=== PATIENT | male | born 1950 | race Caucasian/White ===

== ENCOUNTER 2017-11-12 13:16 | Inpatient (IN) ==
--- NOTE | 2017-11-12 13:44 | Emergency Department Report ---
General Adult HPI - General Chief complaint: Medical Emergency Stated complaint: light headed,unresponsive Time Seen by Provider: 11/12/17 13:44 - Related Data Home Medications Medication Instructions Recorded Confirmed Acetaminophen [Acetaminophen Extra 1,000 mg PO Q6H PRN 09/19/17 09/19/17 Strength] Ascorbate Calcium [Vitamin C] 500 mg PO DAILY 09/19/17 09/19/17 Citalopram [Celexa] 40 mg PO DAILY 09/19/17 09/19/17 Cyclobenzaprine [Flexeril] 10 mg PO TID PRN 09/19/17 09/19/17 Glucosa Bbo 2Kcl/Chondroitin Bob 1 tab PO DAILY 09/19/17 09/19/17 [Glucosamine Chondroitin Caplet] Lisinopril [Prinivil] 10 mg PO DAILY 09/19/17 09/19/17 Previous Rx's Medication Instructions Recorded Hydrocodone/APAP 5/325 [[place] 2 tab PO QID PRN #30 tab 09/19/17 5/325] Allergies Allergy/AdvReac Type Severity Reaction Status Date / Time aspirin AdvReac Severe "SEVERE" Verified 09/19/17 19:41 BLEEDING ULCERS NSAIDS (Non-Steroidal AdvReac Severe "SEVERE" Verified 09/19/17 19:41 Anti-Inflamma BLEEDING ULCERS [facility] Patient Stated Medical History Hypertension Yes Osteoarthritis Yes: mid to lower back pain Other Musculoskeletal Yes: scoliosis Surgical History: appendix. hand - Social History Smoking status: Former smoker Substance use type: does not use Alcohol intake frequency: former alcohol drinker Disposition Prescriptions: No Action Ascorbate Calcium [Vitamin C] 500 mg PO DAILY Cyclobenzaprine [Flexeril] 10 mg PO TID PRN PRN Reason: Prn Orders Acetaminophen [Acetaminophen Extra Strength] 1,000 mg PO Q6H PRN PRN Reason: Pain Lisinopril [Prinivil] 10 mg PO DAILY Citalopram [Celexa] 40 mg PO DAILY Glucosa Bob 2Kcl/Chondroitin Bob [Glucosamine Chondroitin Caplet] 1 tab PO DAILY Hydrocodone/APAP 5/325 [[place] 5/325] 2 tab PO QID PRN #30 tab PRN Reason: Pain Referrals: Jay Goodman [Family Provider] -
--- NOTE | 2017-11-12 14:31 | CT Scan Report ---
Indication: difficulty finding words rule out stroke PROCEDURE: CT head/brain wo con: Encounter: Initial Comparison: 08/20/2016 Findings: There is mild prominence of the ventricles and sulci compatible with cortical atrophy. There is no mass, mass effect, or midline shift. No evidence for intracranial hemorrhage. No intra or extra-axial fluid collections. No evidence for depressed skull fracture. The included portions of the sinuses are clear. IMPRESSION: Mild cortical atrophy. No evidence for acute cortical infarct, intracranial hemorrhage, or mass. .
--- NOTE | 2017-11-12 14:39 | XRay Report ---
Indication: difficulty breathing PROCEDURE: XR chest 2V: Encounter: Initial Comparison: None. Findings: There is a questionable nodular opacity in the right mid to upper lung field that measures about 1.5 to 2 cm. The lungs are otherwise relatively clear without lobar consolidation or pleural effusion. Heart size is normal. No significant tortuosity of the descending thoracic aorta. Trachea is midline. Impression: Possible poorly defined nodular opacity in the right midlung. Consider chest CT with IV contrast or short-term follow-up exam for further evaluation. .
[2017-11-12] MEDS ORDERED: MORPHINE SULFATE 4mg INJECTION IVP ONE ×2 (15:15→16:26)
[2017-11-12] MEDS: SALINE FLUSH 10ml SYRINGE IVF PRN ×2 (15:24→17:43)
[2017-11-12] MEDS ORDERED: IOHEXOL 350mg/ml 50ml INJECTION ONE (15:44)
[2017-11-12] MEDS ORDERED: IOHEXOL 350mg/ml 75ml INJECTION ONE (15:44)
[2017-11-12] MEDS ORDERED: SALINE FLUSH 10ml SYRINGE ONE (15:45)
--- NOTE | 2017-11-12 16:30 | CT Scan Report ---
Indication: low hemoglobin back pain, abdominal distention PROCEDURE: CT angio aorta: Encounter: Initial Technique: Helical imaging was performed of the chest abdomen and pelvis after the uneventful IV administration of iodinated contrast. 3-dimensional volume rendered reconstructions were performed on the helically acquired data including rotational surface rendered images. Comparison: None. Findings: CTA chest: The great vessels arise from the aorta and a normal variant manner with the left vertebral artery arising directly from the aortic arch. There is no evidence for aortic aneurysm. There is scattered calcific atherosclerotic disease. The descending aorta is normal in caliber. No evidence for aortic dissection. The lungs are relatively clear. There are some linear atelectasis and/or scarring in the posterior right lung. There is no mediastinal or hilar adenopathy. Heart size is normal. No pericardial effusion. No pleural effusion. CTA abdomen: The abdominal aorta is nonaneurysmal. The great vessels are widely patent without flow-limiting stenosis. There are single bilateral renal arteries. The TIM is patent. There is no ulcerative plaque. There are a few scattered calcific atherosclerotic plaques. The liver has a slightly nodular contour suggesting cirrhosis. The spleen is not definitely enlarged. Adrenal glands are normal. Kidneys enhance symmetrically without focal abnormality. No hydronephrosis, mass, or stone. The gallbladder is thin-walled and nondistended without definite stones. The pancreas is homogeneous in density and uniform in contour. There is no definite bowel distention or bowel wall thickening. No retroperitoneal or mesenteric adenopathy. CTA pelvis: The aortic bifurcation is unremarkable. There is no definite ectasia or aneurysmal dilation of the iliac vessels which are widely patent through the common femoral arteries. The urinary bladder is mildly distended. There is no free fluid. A normal appendix is identified. There is moderate scoliosis of the thoracolumbar spine that is levoconvex in the lumbar spine. Impression: No evidence for aortic aneurysm or aortic dissection. No flow-limiting stenosis of the great vessels. Evidence for cirrhosis of the liver. Mild distention of the urinary bladder. .
[2017-11-12] MEDS ORDERED: ACETAMINOPHEN 325 MG TABLET PO PRN (17:16)
[2017-11-12] MEDS ORDERED: ONDANSETRON 4 MG/2 ML INJECTION IVP PRN (17:16)
[2017-11-12] MEDS ORDERED: NS FLUSH BAG 500ml IV PRN (17:16)
[2017-11-12] MEDS ORDERED: ACETAMINOPHEN 650 MG SUPPOSITORY PR PRN (17:16)
--- NOTE | 2017-11-12 17:33 | History & Physical Report ---
History of Present Illness Date: 11/12/17 Chief complaint: lightheaded and dizzy HPI: Adam Bejarano is a 67 y/o male who has felt lightheaded for about a week. Also during this time he's had some increasing allergy symptoms and has been taking Sudafed. However, he developed loose stools a couple of days ago. He states they were brown and did not appear black or red. He denied feeling SOA, but would become winded after walking about 20 feet. He became very dizzy on and passed out. His only symptom prior to that was dizziness - he denied any chest pain, headache, visual changes, or abdominal pain. He has chronic back pain which is not well controlled today (he only has been on Tylenol for the last 6 months - used to take narcotics). He presented to [facility] ED for evaluation. He was hemodynamically stable on arrival. Head CT was negative for acute findings. CT angio of his aorta was negative for dissection or aneurysm. Labs showed hgb of 5.9 and Na of 125 (pt reports a hx of low sodium). UA was negative for UTI. Hemoccult was positive. He received Morphine for his back pain which was ineffective. Dr. Munoz was notified and admitted MR. Bejarano to the CCU as an inpatient for further eval treatment of syncope, acute severe anemia, and hyponatremia. LOS is expected to exceed 2 overnights. Review of Systems All systems PM: 10-point ROS was reviewed, no additional remarkable complaints except - Constitutional Constitutional: Absent: chills, fever(s), increased appetite, weight gain, weight loss - EENCT Eyes: Absent: blurry vision, change in vision Nose: Present: allergies Mouth/Throat: Present: scratchy throat (thirsty). Absent: sore throat, changes in swallowing, painful swallowing - Cardiovascular Cardiovascular: Present: syncope. Absent: chest pain, palpitations Vascular: Absent: pedal edema - Respiratory Respiratory: Present: dyspnea on exertion - Gastrointestinal Gastrointestinal: Present: diarrhea. Absent: abdominal pain, change in bowel habits, constipation, hematemesis, hematochezia, melena, nausea, odynophagia - Genitourinary Genitourinary: Present: urinary frequency (chronic). Absent: dysuria - Musculoskeletal Musculoskeletal: Present: back pain (chronic) - Integumentary/Breasts Integumentary: Present: wounds (forehead abrasion from fall) - Neurological Neurological: Present: dizziness. Absent: confusion, frequent falls, memory loss, numbness, paresthesias - Psychiatric Psychiatric: Absent: anxiety, behavioral changes - Endocrine Endocrine: Absent: palpitations - Hematologic/Lymphatic Hematologic/Lymphatic: Absent: lymphadenopathy - Allergic/Immunologic Allergic/Immunologic: Present: seasonal rhinorrhea Past Medical History Medical History Updates: Type 2 diabetes. History of peptic ulcer disease with bleeding ulcers. Chronic hepatitis C. Hypertension. Chronic low back pain. Obesity. Surgical History: EGD with biopsy of duodenal ulcer, [address] Allred, revealing large nonbleeding duodenal ulcer and moderate to severe duodenitis with evidence of recent hemorrhage and mild gastritis. Pathology revealed acute necrotizing inflammation of the duodenum. No malignancy. ORIF right ankle fracture, 2013. Colonoscopy, [address] Keene, showing internal hemorrhoids and hyperplastic polyp. Appendectomy, 1999. T and A, 195 Family History Updates: Patient reports that his father at age 93 of old age. Prior records indicate that he had an esophageal ulceration. His mother of colon cancer at the age of 87. He has 2 brothers who are relatively healthy. 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 Medications Home Medications Medication Instructions Recorded Confirmed Type Acetaminophen [Acetaminophen Extra 1,000 mg PO Q6H PRN 09/19/17 11/12/17 History Strength] Cyclobenzaprine [Flexeril] 10 mg PO TID PRN 09/19/17 11/12/17 History Glucosa Bob 2Kcl/Chondroitin Bob 1 tab PO DAILY 09/19/17 11/12/17 History [Glucosamine Chondroitin Caplet] Lisinopril [Prinivil] 10 mg PO DAILY 09/19/17 11/12/17 History Citalopram [Celexa] 40 mg PO DAILY 11/12/17 11/12/17 History Ferrous Sulfate [Iron] 325 mg PO DAILY 11/12/17 11/12/17 History Tamsulosin [Flomax] 0.4 mg PO HS 11/12/17 11/12/17 History Allergies Allergy/AdvReac Type Severity Reaction Status Date / Time aspirin AdvReac Severe "SEVERE" Verified 11/12/17 13:56 BLEEDING ULCERS NSAIDS (Non-Steroidal AdvReac Severe "SEVERE" Verified 11/12/17 13:56 Anti-Inflamma BLEEDING ULCERS Exam Vital Signs: Pulse Rate 100 11/12/17 16:45 Respiratory Rate 15 11/12/17 16:45 Blood Pressure 118/68 11/12/17 16:12 Pulse Oximetry 100 11/12/17 16:45 - Constitutional Present: no acute distress, well nourished, well developed - Routine HEENT Exam Head: Absent: atraumatic (superficial abrasion to forehead) Eye: Present: PERRL. Absent: conjunctival icterus, scleral injection, conjunctivae pink (pale) ENT: Present: mucous membranes moist, oropharynx clear - Routine Neck Exam Present: supple. Absent: lymphadenopathy - Routine Respiratory Exam Present: CTA bilaterally - Routine Cardiovascular Exam Present: RRR, S1, S2, tachycardia (slightly tachycardic) - Routine Abdominal Exam Present: soft, non distended, non tender. Absent: normoactive bowel sounds ( hypoactive bowel sounds) - Routine Extremities Exam Present: no edema, pulses intact - Routine Back/Spine/Pelvis Exam Back/Spine: Absent: full ROM (pain with movement) - Routine Skin Exam Present: intact, dry, pallor, warm, wounds (noted above) - Routine Neurological Exam Present: alert, oriented X3, CN II-XII intact, moving all extremities, vision grossly intact, hearing grossly intact, tremors, asterixis - Routine Psychiatric Exam Present: normal affect, normal thought process, cooperative Results - Labs CBC & Chem 7: 11/12/17 14:56 11/12/17 14:56 - ECG Data Tracing #1 I reviewed this ECG and interpreted as documented below: NSR, no ST segment elevation/depression - Imaging and Cardiology CTA aorta Status: image reviewed by me Additional comments: Date of Exam: 11/12/17 PROCEDURE: CT angio aorta: Findings: CTA chest: The great vessels arise from the aorta and a normal variant manner with the left vertebral artery arising directly from the aortic arch. There is no evidence for aortic aneurysm. There is scattered calcific atherosclerotic disease. The descending aorta is normal in caliber. No evidence for aortic dissection. The lungs are relatively clear. There are some linear atelectasis and/or scarring in the posterior right lung. There is no mediastinal or hilar adenopathy. Heart size is normal. No pericardial effusion. No pleural effusion. CTA abdomen: The abdominal aorta is nonaneurysmal. The great vessels are widely patent without flow-limiting stenosis. There are single bilateral renal arteries. The TIM is patent. There is no ulcerative plaque. There are a few scattered calcific atherosclerotic plaques. The liver has a slightly nodular contour suggesting cirrhosis. The spleen is not definitely enlarged. Adrenal glands are normal. Kidneys enhance symmetrically without focal abnormality. No hydronephrosis, mass, or stone. The gallbladder is thin-walled and nondistended without definite stones. The pancreas is homogeneous in density and uniform in contour. There is no definite bowel distention or bowel wall thickening. No retroperitoneal or mesenteric adenopathy. CTA pelvis: The aortic bifurcation is unremarkable. There is no definite ectasia or aneurysmal dilation of the iliac vessels which are widely patent through the common femoral arteries. The urinary bladder is mildly distended. There is no free fluid. A normal appendix is identified. There is moderate scoliosis of the thoracolumbar spine that is levoconvex in the lumbar spine. Impression: No evidence for aortic aneurysm or aortic dissection. No flow- limiting stenosis of the great vessels. Evidence for cirrhosis of the liver. Mild distention of the urinary bladder. Chest x-ray Status: image reviewed by me Additional comments: Date of Exam: 11/12/17 PROCEDURE: XR chest 2V: Findings: There is a questionable nodular opacity in the right mid to upper lung field that measures about 1.5 to 2 cm. The lungs are otherwise relatively clear without lobar consolidation or pleural effusion. Heart size is normal. No significant tortuosity of the descending thoracic aorta. Trachea is midline. Impression: Possible poorly defined nodular opacity in the right midlung. Consider chest CT with IV contrast or short-term follow-up exam for further evaluation. Assessment and Plan (1) Anemia Current visit: Yes Status: Acute (2) Acute GI bleeding Current visit: Yes Status: Acute Assessment and Plan: Assessment Anemia, suspect GI blood loss. (History of peptic ulcer disease with bleeding ulcers) Syncope, with resulting forehead abrasion Hyponatremia (POA) Type 2 diabetes, diet controlled Chronic hepatitis C Hypertension Chronic low back pain BPH Obesity with BMI 31.1 Plan Admit, inpatient status in CCU, under the hospitalist service. Primary care physician: Dr. Jay Goodman Anemia, suspect GI blood loss. Type and cross for blood transfusion. Consult Dr. Allred. Iron studies ordered prior to transfusion. Will also check INR. Diet: Clear liquids. Protonix IV BID. Resume iron. Syncope Telemetry. Trend troponins. Hyponatremia. Normal saline @ 75 mL/hr. Trend sodium levels. Type 2 diabetes. Diet controlled. Accu-Checks. Hypertension. Hold lisinopril and monitor blood pressure. In addition, with contrast load, will hold lisinopril to help protect kidney function. CODE STATUS: DO NOT RESUSCITATE. VTE Prophylaxis: SCDs. DVT Prophylaxis: SCD's GI Prophylaxis: Protonix Resuscitation Status: Do Not Resuscitate - Physician Narrative Physician: Meet Munoz MD Narrative: Date: 11/12/17 Time: 8 Have independently interviewed and examined pt. Chart reviewed. Case discussed with ED physician and my DRIFTMAN. Care plan developed with my supervision; agree with above. Presents to ER via EMS secondary to weakness/lightheadedness and syncope. BP 80/ 60 on scene with O2 saturations decreased at 70% on RA. He did have fall at home with trauma to forehead-result of syncope. Reports has been feeling more weak and lightheaded for the past week. Becomes winded with activities; needs to stop to rest and catch breath after walking 20 feet. Not having cough/ congestion. Does note rhinitis. No palpitations, but will feel pulse pounding in head. Stools more loose over the last weak. Not having nausea or dyspepsia. Evaluated in ED. Sodium decreased to 125 and hemoglobin decreased to 5.9. Admitted to inpatient at [facility] for further evaluation and treatment. Anticipated length of stay is thought to be greater than 2 midnight. Lungs: decreased, no distress CV: tachy, regular AB: soft nt EXT: trace edema. MSE: awake alert Plan: Inpatient admission to [facility] CCU for treatment of significant anemia thought to be of GI blood loss origon. Will transfuse 2 units of pRBC. IV Protonix for GI protection. Check Ferritin, iron, B12 and folate due to anemia. Case discussed with Dr Allred - anticipate scopes in near future to determine etiology for blood loss. MS for pain. SCD for DVT prevention. Monitor lab. DNR as per his request. Care to return to Dr Goodman at time of discharge from [facility]. Hospital Course Summary Disclaimer: The visit summary below is not to be considered part of the above Progress Note. Hospital Course: 11/12/17 Admit, inpatient status in CCU, under the hospitalist service. Primary care physician: Dr. Jay Goodman Anemia, suspect GI blood loss. Type and cross for blood transfusion. Consult Dr. Allred. Iron studies ordered prior to transfusion. Will also check INR. Diet: Clear liquids. Protonix IV BID. Resume iron. Syncope Telemetry. Trend troponins. Hyponatremia. Normal saline @ 75 mL/hr. Trend sodium levels. Type 2 diabetes. Diet controlled. Accu-Checks. Hypertension. Hold lisinopril and monitor blood pressure. In addition, with contrast load, will hold lisinopril to help protect kidney function. CODE STATUS: DO NOT RESUSCITATE. VTE Prophylaxis: SCDs.
[2017-11-12] MEDS: PANTOPRAZOLE 40 MG INJECTION IVP SCH ×2 (17:42→20:30)
[2017-11-12] MEDS: NS 1,000 ML IV SCH (17:42)
[2017-11-12] MEDS ORDERED: CYCLOBENZAPRINE 10 MG TABLET PO PRN (17:47)
[2017-11-12] MEDS: MORPHINE SULFATE 4mg INJECTION IVP PRN ×3 (17:51→22:39)
[2017-11-12 17:53] VITALS: BMI 31.1
[2017-11-12] MEDS: TAMSULOSIN 0.4 MG CAPSULE PO SCH (20:30)
[2017-11-13] MEDS: MORPHINE SULFATE 4mg INJECTION IVP PRN ×8 (00:31→22:03)
[2017-11-13] MEDS ORDERED: FERROUS SULFATE 324 MG TABLET PO SCH (08:00)
[2017-11-13] MEDS: FERROUS SULFATE 324 MG TABLET PO SCH (08:48)
[2017-11-13] MEDS: PANTOPRAZOLE 40 MG INJECTION IVP SCH ×2 (08:49→21:11)
[2017-11-13] MEDS: CITALOPRAM 40 MG TABLET PO SCH (08:52)
[2017-11-13] MEDS ORDERED: IRON - PHARMACY CONSULT MC ONE (09:31)
[2017-11-13] MEDS: NS 1,000 ML IV SCH ×2 (10:18→21:13)
[2017-11-13] MEDS ORDERED: INFED 100mg/2ml INJ TEST DOSE IVP ONE (10:45)
[2017-11-13] MEDS ORDERED: SOLU-MEDROL 125mg/2ml INJ (HIVES-ANAPHYLAXIS) IVP PRN (10:45)
[2017-11-13] MEDS ORDERED: BENADRYL 50 MG/ML INJ (HIVES-ANAPHYLAXIS) IVP PRN (10:45)
[2017-11-13] MEDS ORDERED: EPINEPHRINE 1mg/ml INJ (ANAPHYAXIS ONLY) IM PRN (10:45)
--- NOTE | 2017-11-13 11:06 | Progress Note ---
- Date 11/13/17 Subjective: F/U: Anemia, GI blood loss, hyponatremia Doing about the same this morning. Did tolerate transfusion well. No nausea or ab pain-feels hungry (would like broth to eat). Back pain still problematic-MS helps slightly. Breathing stable-not feeling increased SOA or congestion. No pain with breathing. Denies palpitations. Urinary status stable. Tired/weak in general. Objective Vital signs: Temperature 97.9 F 11/13/17 08:00 Pulse Rate 101 H 11/13/17 09:00 Respiratory Rate 21 11/13/17 09:00 Blood Pressure 128/81 11/13/17 09:00 Pulse Oximetry 100 11/13/17 09:00 Height/Weight/BMI: Height 1.68 m Weight 87.4 kg Body Mass Index 31.1 - Constitutional Present: well nourished, well developed, average body habitus, obese, cooperative - Routine HEENT Exam Head: Present: normocephalic, atraumatic Eye: Present: EOMI, PERRL ENT: Present: mucous membranes moist - Routine Respiratory Exam Present: decreased breath sounds. Absent: rales, respiratory distress, rhonchi , stridor, wheezes, crackles - Routine Cardiovascular Exam Present: no murmur, tachycardia (Regular) - Routine Abdominal Exam Present: soft, normoactive bowel sounds, non distended, non tender. Absent: guarding - Routine Extremities Exam Present: no edema, pulses intact. Absent: cyanosis, clubbing Comments: SCD in place - Routine Musculoskeletal Exam Musculoskeletal: Present: no clubbing or cyanosis - Routine Skin Exam Present: dry, warm - Routine Neurological Exam Present: alert, oriented X3, CN II-XII intact, moving all extremities, vision grossly intact, hearing grossly intact, normal speech. Absent: motor deficit, altered mental status - Routine Psychiatric Exam Present: normal affect, normal thought process, cooperative Results - Labs CBC & Chem 7: 11/13/17 10:10 11/13/17 10:10 Assessment and Plan (1) Anemia Current visit: Yes Status: Acute (2) Acute GI bleeding Current visit: Yes Status: Acute Assessment and Plan: Assessment Anemia Suspect GI blood loss. (History of peptic ulcer disease with bleeding ulcers ) Syncope, with resulting forehead abrasion Hyponatremia (POA) Iron deficiency Low normal B12 level Type 2 diabetes, diet controlled Chronic hepatitis C Hypertension Chronic low back pain BPH Obesity with BMI 31.1 Plan Hemoglobin increased to 7.2 post transfusion of 1 unit pRBC, but decreased to 6.8 on recheck. Will transfuse 1 unit pRBC and monitor. Iron level low - will give IV iron as level low despite oral iron use in the outpatient setting. B12 low normal at 253 - will start IM Vit B12 shots of 1000mcg daily. Dr Allred evaluated patient and anticipated EGD/Colonoscopy tomorrow - will start bowel prep. Serum sodium still low at 125. Continue low flow IVF and monitor. Continue with IV Protonix for GI protection. Case discussed with CCU nursing and Dr Allred. Time spent with patient care 25 minutes. DVT Prophylaxis: SCD's GI Prophylaxis: Protonix Resuscitation Status: Do Not Resuscitate - Time spent with patient Time with patient PN: 25 minutes - Physician Narrative Physician: Meet Munoz MD Narrative: Date: 11/13/17 Time: 1102 Hospital Course Summary Disclaimer: The visit summary below is not to be considered part of the above Progress Note. Hospital Course: 11/12/17 Admit, inpatient status in CCU, under the hospitalist service. Primary care physician: Dr. Jay Goodman Anemia, suspect GI blood loss. Type and cross for blood transfusion. Transfuse 1 unit pRBC as HGB less than 7.0. Consult Dr[address] Allred. Iron studies ordered prior to transfusion. Will also check INR. Diet: Clear liquids. Protonix IV BID. Resume iron. Syncope Telemetry. Trend troponins. Hyponatremia. Normal saline @ 75 mL/hr. Trend sodium levels. Type 2 diabetes. Diet controlled. Accu-Checks. Hypertension. Hold lisinopril and monitor blood pressure. In addition, with contrast load, will hold lisinopril to help protect kidney function. CODE STATUS: DO NOT RESUSCITATE. VTE Prophylaxis: SCDs. 11/13/17 Hemoglobin increased to 7.2 post transfusion of 1 unit pRBC, but decreased to 6.8 on recheck. Will transfuse 1 unit pRBC and monitor. Iron level low - will give IV iron as level low despite oral iron use in the outpatient setting. B12 low normal at 253 - will start IM Vit B12 shots of 1000mcg daily. Dr Allred evaluated patient and anticipated EGD/Colonoscopy tomorrow - will start bowel prep. Serum sodium still low at 125. Continue low flow IVF and monitor. Continue with IV Protonix for GI protection.
[2017-11-13] MEDS ORDERED: IRON DEXTRAN IV SCH (11:45)
[2017-11-13] MEDS ORDERED: NS IV SCH (11:45)
[2017-11-13] MEDS ORDERED: Bisacodyl EC TAB 5 MG TABLET PO ONE (13:30)
[2017-11-13] MEDS: SALINE FLUSH 10ml SYRINGE IVF PRN ×4 (13:39→22:03)
[2017-11-13] MEDS: CYANOCOBALAMIN (B-12) 1,000mcg/ml INJECTION IM SCH (14:02)
--- NOTE | 2017-11-13 14:37 | General Surgery Consult Note ---
Consult date: 11/13/17 Attending Physician: Meet Munoz MD Reason for consult: other (Anemia-scopes) [facility] Medical History Updates: Type 2 diabetes. History of peptic ulcer disease with bleeding duodenal ulcers - 2013. Chronic hepatitis C. Hypertension. Chronic low back pain. Obesity. GERD. Surgical History: * ORIF of right bimaleolar ankle fracture and fixation of syndesmosis - 06/08/[address] Mckenna. * EGD - 05/17/[address] Allred. Endoscopy showed duodenitis and 2 large duodenal ulcers with no evidence of active hemorrhage. * EGD with biopsies - 01/14/[address] Allred. Endoscopy revealed a very large nonbleeding duodenal ulcer other smaller duodenal ulcers and moderate to severe duodenitis with evidence of recent hemorrhage and mild gastritis. Pathology revealed acute necrotizing inflammation of the duodenum. No malignancy. * Colonoscopy with polypectomy - 01/05/[address] Keene, showing internal hemorrhoids and hyperplastic polyp. * Appendectomy - [address] Delatorre. * T and A - 1958. Family History Updates: Patient reports that his father at age 93 of old age. Prior records indicate that he had an esophageal ulceration. His mother of colon cancer at the age of 87. He has 2 brothers who are relatively healthy. - Social History Smoking status: Former smoker (quit smoking in 1987) Substance use type: does not use Alcohol intake frequency: 0-2 drinks per day (glass of wine daily) Housing: house Household members: spouse Current occupational status: employed Current occupation: truck sales manager Medications Home Medications Medication Instructions Recorded Confirmed Type Acetaminophen [Acetaminophen Extra 1,000 mg PO Q6H PRN 09/19/17 11/12/17 History Strength] Cyclobenzaprine [Flexeril] 10 mg PO TID PRN 09/19/17 11/12/17 History Glucosa Bob 2Kcl/Chondroitin Bob 1 tab PO DAILY 09/19/17 11/12/17 History [Glucosamine Chondroitin Caplet] Lisinopril [Prinivil] 10 mg PO DAILY 09/19/17 11/12/17 History Citalopram [Celexa] 40 mg PO DAILY 11/12/17 11/12/17 History Ferrous Sulfate [Iron] 325 mg PO DAILY 04/12/18 04/12/18 History Tamsulosin [Flomax] 0.4 mg PO HS 11/12/17 11/12/17 History Allergies Allergy/AdvReac Type Severity Reaction Status Date / Time aspirin AdvReac Severe "SEVERE" Verified 11/12/17 13:56 BLEEDING ULCERS NSAIDS (Non-Steroidal AdvReac Severe "SEVERE" Verified 11/12/17 13:56 Anti-Inflamma BLEEDING ULCERS Review of Systems 10-point ROS: negative except for HPI and the following: - Eyes/Ears/Nose/Throat Ear Nose Throat: Present: nosebleeds - Musculoskeletal Musculoskeletal: Present: back pain (chronic) - Vital Signs Last Vital Signs Temp 97.9 F 11/13/17 08:00 Pulse 101 H 11/13/17 09:00 Resp 21 11/13/17 09:00 BP 128/81 11/13/17 09:00 Pulse Ox 100 11/13/17 09:00 - Laboratory Result Diagrams: 11/13/17 10:10 11/13/17 10:10 General Surgery Results - Results Labs: 11/13/17 10:10 11/13/17 10:10
[2017-11-13] MEDS: HYDROCODONE/APAP 10 MG/325 MG TABLET PO PRN ×2 (15:20→19:46)
[2017-11-13] MEDS ORDERED: POLYETHYL. GLYCOL 3350 BOTTLE 238 GM PO ONE (15:30)
--- NOTE | 2017-11-13 16:41 | Advanced Care Planning ---
History of Present Illness Date: 11/13/17 Current Medical Condition: Previous Diagnosis: Treatment: Response to Treatment: Diagnosis: Prognosis: Past Medical History Patient Stated Medical History Hearing Loss Yes Hypertension Yes Anemia Yes Osteoarthritis Yes: mid to lower back pain Other Musculoskeletal Yes: scoliosis Other Infectious Yes: Hx Hep C Blood Transfusions Yes Medical History Updates: Type 2 diabetes. History of peptic ulcer disease with bleeding duodenal ulcers - 2013. Chronic hepatitis C. Hypertension. Chronic low back pain. Obesity. GERD. Surgical History: * ORIF of right bimaleolar ankle fracture and fixation of syndesmosis - 06/08/[address] Mckenna. * EGD - 05/17/[address] Allred. Endoscopy showed duodenitis and 2 large duodenal ulcers with no evidence of active hemorrhage. * EGD with biopsies - 01/14/[address] Allred. Endoscopy revealed a very large nonbleeding duodenal ulcer other smaller duodenal ulcers and moderate to severe duodenitis with evidence of recent hemorrhage and mild gastritis. Pathology revealed acute necrotizing inflammation of the duodenum. No malignancy. * Colonoscopy with polypectomy - 01/05/[address] Keene, showing internal hemorrhoids and hyperplastic polyp. * Appendectomy - [address] Delatorre. * T and A - 1958. - Social History Smoking status: Former smoker (quit smoking in 1987) - Cultural and Spiritual Medications Home Medications Medication Instructions Recorded Confirmed Type Acetaminophen [Acetaminophen Extra 1,000 mg PO Q6H PRN 09/19/17 11/12/17 History Strength] Cyclobenzaprine [Flexeril] 10 mg PO TID PRN 09/19/17 11/12/17 History Glucosa Bob 2Kcl/Chondroitin Bob 1 tab PO DAILY 09/19/17 11/12/17 History [Glucosamine Chondroitin Caplet] Lisinopril [Prinivil] 10 mg PO DAILY 09/19/17 11/12/17 History Citalopram [Celexa] 40 mg PO DAILY 11/12/17 11/12/17 History Ferrous Sulfate [Iron] 325 mg PO DAILY 11/12/17 11/12/17 History Tamsulosin [Flomax] 0.4 mg PO HS 11/12/17 11/12/17 History Allergies Allergy/AdvReac Type Severity Reaction Status Date / Time aspirin AdvReac Severe "SEVERE" Verified 11/12/17 13:56 BLEEDING ULCERS NSAIDS (Non-Steroidal AdvReac Severe "SEVERE" Verified 11/12/17 13:56 Anti-Inflamma BLEEDING ULCERS Exam Vital Signs: Temperature 98.1 F 11/13/17 16:00 Pulse Rate 107 H 11/13/17 16:15 Respiratory Rate 17 11/13/17 16:15 Blood Pressure 144/73 H 11/13/17 16:15 Pulse Oximetry 100 11/13/17 16:15 Height/Weight/BMI: Height 1.68 m Weight 87.4 kg Body Mass Index 31.1 - Laboratory CBC & Chem 7: 11/13/17 15:42 11/13/17 10:10
--- NOTE | 2017-11-13 17:43 | Consultation ---
DATE OF CONSULTATION 11/13/2017 CONSULTING PHYSICIAN Jules Allred MD REQUESTING PHYSICIAN Meet Munoz MD REASON FOR CONSULTATION Anemia - scopes. IMPRESSION 1. Anemia of uncertain etiology - hemoglobin of 5.9 requiring transfusion. 2. Family history of colon cancer - due for a repeat screening colonoscopy. 3. Personal history of duodenal ulcers in 2013. RECOMMENDATIONS 1. Transfuse as necessary to maintain a hemoglobin greater than 7. 2. Given the history of duodenal ulcers, I do think that an esophagogastroduodenoscopy should be performed to look for a potential source of blood loss. 3. Since the patient has a family history of colon cancer in his mother he is due for repeat screening colonoscopy in January 2018. Since this is so close and he is already going to be under sedation, I do feel that repeat colonoscopy should be performed at once. This will also investigate for other potential etiologies of anemia if his esophagogastroduodenoscopy is normal. HISTORY OF PRESENT ILLNESS Adam was a prior patient of mine when I cared for him with two esophagogastroduodenoscopies in 2013 for duodenal ulcers. He was hospitalized yesterday when he was discovered to have a hemoglobin of 5.9 on evaluation in the emergency department. The patient says that he had a significant nosebleed in October. He had to have nasal cauterization at [facility] in [place] and followup cauterization in the clinic the following day. He said that he was having significant bleeding where he was soaking a washcloth in about a minute. He also reports that he has had fatigue for the last few weeks. He has felt winded after walking about 20 feet. Yesterday he felt dizzy and then passed out. This is what prompted his emergency department evaluation. He denies any abdominal pain. His stools have been normal and he does check for any blood in his stools. He has seen no melanotic stools. He does have a history of duodenal ulcers in 2013. He has a family history of colon cancer in his mother. His last colonoscopy was on 01/05/2013. PAST MEDICAL HISTORY, PAST SURGICAL HISTORY, ALLERGIES, MEDICATIONS, REVIEW OF SYSTEMS, SOCIAL HISTORY, FAMILY HISTORY, VITAL SIGNS, LABORATORY DATA See electronic consultation note. PHYSICAL EXAMINATION GENERAL: The patient is awake and alert, in no acute distress. HEENT: Sclerae clear. Extraocular muscles intact. NECK: Supple with a midline trachea. No lymphadenopathy or thyromegaly are noted. HEART: Regular rate and rhythm. LUNGS: Clear to auscultation bilaterally. ABDOMEN: Soft, obese, nontender, nondistended. There are no masses, fluid, organomegaly, guarding or rebound noted. EXTREMITIES: No clubbing, cyanosis or edema. NEUROLOGIC: Cranial nerves II-XII are grossly intact. PSYCHIATRIC: Normal mood and affect. PATIENT EDUCATION The details, risks and benefits of esophagogastroduodenoscopy and colonoscopy were discussed with the patient. The discussion included but was not limited to bleeding, perforation requiring repair, aspiration, missed lesions, and complications of anesthesia. He did wish to proceed with endoscopies. FLORECITA
[2017-11-13] MEDS: TAMSULOSIN 0.4 MG CAPSULE PO SCH (21:11)
[2017-11-14] MEDS: SALINE FLUSH 10ml SYRINGE IVF PRN ×2 (00:09→04:58)
[2017-11-14] MEDS: MORPHINE SULFATE 4mg INJECTION IVP PRN ×10 (00:09→21:20)
[2017-11-14] MEDS: HYDROCODONE/APAP 10 MG/325 MG TABLET PO PRN ×4 (00:09→21:21)
[2017-11-14] MEDS: NS 1,000 ML IV SCH ×3 (06:53→16:37)
[2017-11-14] MEDS: PANTOPRAZOLE 40 MG INJECTION IVP SCH (08:58)
[2017-11-14] MEDS: FERROUS SULFATE 324 MG TABLET PO SCH (08:59)
[2017-11-14] MEDS: CYANOCOBALAMIN (B-12) 1,000mcg/ml INJECTION IM SCH (08:59)
[2017-11-14] MEDS: CITALOPRAM 40 MG TABLET PO SCH (08:59)
[2017-11-14] MEDS ORDERED: LIDOCAINE VISCOUS 2% ORAL LIQUID 15ml PO ONE (09:31)
[2017-11-14] MEDS ORDERED: PROPOFOL 500 MG/50 ML VIAL ONE ×2 (09:45→10:35)
--- NOTE | 2017-11-14 09:46 | Anesthesia Preoperative Report ---
Anesthesia Preoperative Record - Date and Time Date: 11/14/17 Preoperative Diagnosis: Anemia, GI bleed, Hyponatremia Proposed Procedure: EGD/Colonoscopy NPO Since Date: 11/14/17 NPO Since Time: 00:00 Allergies/Adverse Reactions: Allergies Allergy/AdvReac Type Severity Reaction Status Date / Time aspirin AdvReac Severe "SEVERE" Verified 11/12/17 13:56 BLEEDING ULCERS NSAIDS (Non-Steroidal AdvReac Severe "SEVERE" Verified 11/12/17 13:56 Anti-Inflamma BLEEDING ULCERS - Vital Signs Vital Signs: Temperature 97.7 F 11/13/17 19:36 Pulse Rate 94 11/14/17 07:00 Respiratory Rate 17 11/14/17 07:00 Blood Pressure 123/87 11/14/17 06:00 Pulse Oximetry 100 11/14/17 03:00 Height and Weight: Height 5 ft 6 in Weight 87.4 kg Body Mass Index 31.1 - Medications Inpatient Medications: Current Medications Acetaminophen (Tylenol) 650 mg PO Q5H PRN PRN Reason: Discomfort Acetaminophen (Tylenol Supp) 650 mg [place] Q5H PRN PRN Reason: Discomfort Hydrocodone Bitart/Acetaminophen ([place] 10/325) 1 tab PO Q4H PRN PRN Reason: Pain Last Admin: 11/14/17 00:09 Dose: 1 tab Citalopram Hydrobromide (Celexa) 40 mg PO DAILY [facility] Last Admin: 11/13/17 08:52 Dose: 40 mg Cyanocobalamin (Vit. B-12) 1,000 mcg IM DAILY [facility] Stop: 11/17/17 09:01 Last Admin: 11/13/17 14:02 Dose: 1,000 mcg Cyclobenzaprine HCl (Flexeril) 10 mg PO TID PRN PRN Reason: PRN orders Diphenhydramine HCl (Benadryl) 50 mg IVP PRN PRN PRN Reason: URTICARIA (HIVES) X 1 DOSE Epinephrine HCl (Adrenalin) 0.3 mg IM PRN PRN PRN Reason: ANAPHYLAXIS ONLY Ferrous Sulfate (Feosol) 324 mg PO WB [facility] Last Admin: 11/13/17 08:48 Dose: 324 mg Sodium Chloride (Normal Saline) 1,000 mls @ 75 mls/hr IV .[id number] [facility] Last Infusion: 11/14/17 07:00 Dose: 75 mls/hr Methylprednisolone Sodium Succinate (Solu-Medrol) 125 mg IVP PRN PRN PRN Reason: URTICARIA (HIVES) X 1 DOSE Morphine Sulfate (Morphine Sulfate Inj) 4 mg IVP Q2H PRN PRN Reason: Pain Last Admin: 11/14/17 06:56 Dose: 4 mg Ondansetron HCl (Zofran) 4 mg IVP Q6H PRN PRN Reason: Nausea Last Admin: 11/13/17 04:36 Dose: 4 mg Pantoprazole Sodium (Protonix Iv) 40 mg IVP BID ALEXA Last Admin: 11/13/17 21:11 Dose: 40 mg Sodium Chloride (Iv Flush) 10 - 80 ml IVF PRN PRN PRN Reason: Flushing Last Admin: 11/14/17 04:58 Dose: 10 ml Sodium Chloride (Normal Saline) 500 ml IV PRN PRN Last Admin: 11/12/17 17:42 Dose: 500 ml Tamsulosin HCl (Flomax) 0.4 mg PO HS [facility] Last Admin: 11/13/17 21:11 Dose: 0.4 mg Home Medications: Home Medications Medication Instructions Recorded Confirmed Type Acetaminophen [Acetaminophen Extra 1,000 mg PO Q6H PRN 09/19/17 11/12/17 History Strength] Cyclobenzaprine [Flexeril] 10 mg PO TID PRN 09/19/17 11/12/17 History Glucosa Bob 2Kcl/Chondroitin Bob 1 tab PO DAILY 09/19/17 11/12/17 History [Glucosamine Chondroitin Caplet] Lisinopril [Prinivil] 10 mg PO DAILY 09/19/17 11/12/17 History Citalopram [Celexa] 40 mg PO DAILY 11/12/17 11/12/17 History Ferrous Sulfate [Iron] 325 mg PO DAILY 11/12/17 11/12/17 History Tamsulosin [Flomax] 0.4 mg PO HS 11/12/17 11/12/17 History Is Patient on Beta Keya?: No - Medical History Respiratory: DENIES: Asthma, Bronchitis, Chronic Obstructive Pulmonary Disease (COPD), Dyspnea, Orthopnea, Pulmonary Embolism, Pneumonia, Upper Respiratory Infection, Pulmonary Edema, Sleep Apnea, Tuberculosis, Other Cardiovascular: Reports: Hypertension Neuro/Musculoskeletal: Reports: [id number].MS.[id number] (mid to lower back pain), Other ( scoliosis) Other History: Reports: Blood Transfusions - Surgical History GI Surgery/Treatments: Reports: Appendectomy, Colonoscopy (Dr. Keene) Musculoskeletal Surgery/Tx: Reports: Other (right leg/ankle) Anesthesia Reactions: None Hx Family Anesthesia Reaction: No History of Motion Sickness: No - Social History Smoking Status: Former smoker (quit smoking in 1987) Substance Use Type: does not use Alcohol Intake Frequency: 0-2 drinks per day (glass of wine daily) - Pertinent Findings Laboratory: CBC and BMP 11/14/17 03:08 11/14/17 03:08 BMP 11/13/17 11/14/17 10:10 03:08 Sodium 125 L 126 L Potassium 4.6 4.5 Chloride 92 L 93 L Carbon Dioxide 24 25 BUN 17.0 11.0 Creatinine 0.9 0.7 L D Glucose 112 H 117 H Calcium 8.7 9.0 EKG: Sinus Tachycardia - Physical Exam Respiratory Exam: Present: lungs clear, bilateral breath sounds equal Cardiovascular Exam: Present: regular rate and rhythm, no murmur - Airway Assessment Mallampati Score: II TMD: 3 Fingerbreadths Neck Extension: fair Overall Assessment: may be difficult intubation - ASA ASA Score: 3 - Plan Anesthesia: General TIVA - Discussion Discussion: Discussed risks/options/alternatives of anesthesia and questions answered. Patient consents. Nursing pain assessment noted. Present for Discussion: spouse Attestation Statement: Prior to the delivery of any anesthetic medication, I examined the patient, developed the plan, obtained the patient's consent and discussed the risk and benefits of the procedure with the patient/guardian. - Additional Information Seen by Anesthesia: Yes
--- NOTE | 2017-11-14 11:30 | Anesthesia Postoperative Note ---
- Date and Time Date: 11/14/17 Time: 11:29 - Status Patient Participated in Evaluation: Patient Participated in Person Vital Signs: Temperature 97.7 F 11/13/17 19:36 Pulse Rate 94 11/14/17 07:00 Respiratory Rate 17 11/14/17 07:00 Blood Pressure 123/87 11/14/17 06:00 Pulse Oximetry 100 11/14/17 03:00 Respiratory Function: Airway Patent Cardiovascular Function: Regular Pulse EKG: Sinus Rhythm Mental Status: Alert and Oriented Pain Intensity: 0 Hydration: IV Infusing Complications During Recover: None Apparent - Follow-Up Instructions Instructions: Per Surgeon
--- NOTE | 2017-11-14 11:34 | General Surgery Procedure Note ---
Date of Procedure: 11/14/17 Surgeon: Chalino Anesthesia: General TIVA ASA Score: 3 Postoperative Diagnosis: Small duodenal ulcer (no active hemorrhage), moderate antral gastritis, moderate internal hemorrhoids, multiple small colon polyps Procedure: EGD with biopsies, colonoscopy with snare polypectomy x2 and hot biopsy forceps polypectomy x10
--- NOTE | 2017-11-14 12:50 | Operative Note ---
DATE OF OPERATION 11/14/2017 SURGEON Jules Allred MD PREOPERATIVE DIAGNOSES 1. Anemia. 2. History of duodenal ulcers. 3. A family history of colon cancer. POSTOPERATIVE DIAGNOSES 1. Small duodenal ulcer of the duodenal bulb. 2. Moderate antral gastritis. 3. 0.5-cm sessile polyp of the descending colon. 4. Less than 0.5-cm sessile polyp of the descending colon. 5. Less than 0.5-cm sigmoid colon polyp at 45 cm. 6. 0.5-cm sigmoid colon polyp at 30 cm. 7. Less than 0.5-cm sigmoid colon polyp at 28 cm. 8. Multiple small rectal polyps (five biopsied). 9. Moderate internal hemorrhoids. PROCEDURE 1. Esophagogastroduodenoscopy with duodenal biopsies for histology and antral biopsies for AFSHAN and histology. 2. Colonoscopy with hot snare polypectomy x 2 and hot biopsy forceps polypectomy x 8. ANESTHESIA TIVA ASA Class 3 INDICATIONS The patient is a 67-year-old male who has a history of duodenal ulcers in 2013. He also has a family history of colon cancer. The patient had been admitted to the hospital with a hemoglobin of 5.9. He had not seen any blood in his stools or melanotic stools. He had had a recent severe nosebleed. Since he was almost five years out from his last colonoscopy it was also recommended that he undergo screening colonoscopy at the time of esophagogastroduodenoscopy to investigate for a source of GI blood loss. FINDINGS In the duodenal bulb there was a small duodenal ulcer with a fibrin clot but no evidence of recent hemorrhage. There was moderate gastritis involving the antrum. The colon showed moderate internal hemorrhoids as well as numerous small polyps in the left colon. DESCRIPTION OF PROCEDURE After informed consent was obtained the patient was taken to the endoscopy suite and placed in the left lateral decubitus position. IV anesthesia was administered by the anesthesia team. A bite block was inserted followed by an Olympus video gastroscope. The gastroscope was advanced down to the second portion of the duodenum under direct vision. The scope was slowly withdrawn, examining mucosa circumferentially. In the duodenal bulb the small duodenal ulcer was noted. Biopsies of the edge of the ulcer were taken and were sent to Pathology. The scope was withdrawn into the antrum. A biopsy had been taken for AFSHAN testing prior to the duodenal biopsies. Additional biopsies of the antrum were taken and were sent to Pathology. The scope was retroflexed to examine the cardiac and fundic portions of the stomach. The carbon dioxide insufflation was evacuated from the stomach and the scope was withdrawn into the esophagus. The esophagus was normal on inspection as the scope was removed. The patient was repositioned for colonoscopy. He had received a MiraLAX/ Dulcolax bowel prep the day prior. A digital rectal exam was performed and was normal. An Olympus video colonoscope with an AmplifEYE device was inserted and was retroflexed to examine the distal rectum. Moderate internal hemorrhoids were noted. The scope was returned to a neutral position. It was advanced to the level of the cecum without difficulty. The cecum was identified by the appendiceal orifice and ileocecal valve. The bowel prep was good with some residual liquid contents of the right colon that were able to be evacuated via the colonoscope. The scope was slowly withdrawn, examining mucosa circumferentially. No abnormalities were noted until the descending colon where a small polyp was encountered. This was encircled with the polypectomy snare. The mucosa was tented and cautery was applied to destroy the base of the polyp. The polyp was retrieved with the suction trap. The scope was withdrawn to the descending colon at 40 cm where another small polyp was encountered. This was smaller and given its position a hot biopsy forceps polypectomy technique was utilized. The polyp was grasped and the mucosa was tented. Cautery was applied to destroy the base of the polyp. The polyp was then removed and was sent to Pathology. The scope was withdrawn to the proximal sigmoid colon where another small polyp was encountered. It was removed with hot biopsy forceps polypectomy technique. There was a slightly larger polyp that was removed with a hot snare polypectomy technique. It was retrieved with biopsy forceps so that it would not be lost in the suction trap. Another polyp was noted in the distal sigmoid colon and was removed with a hot biopsy forceps polypectomy technique. In the proximal rectum there were multiple polyps that were encountered. The five largest polyps in the rectum were removed with hot biopsy forceps polypectomy technique and were sent to Pathology. The carbon dioxide insufflation was evacuated and the scope was removed. RECOMMENDATIONS 1. Add Carafate therapy for two months to help his duodenal ulcer and gastritis heal. 2. I think that Adam will need lifelong PPI therapy given his history of ulcers in 2013 and recurrent ulcer on this endoscopy. 3. Await pathology of colon polyps to determine the necessary time interval for repeat colonoscopy. He would be given five years at most given his family history of colon cancer. FLORECITA
--- NOTE | 2017-11-14 13:17 | Progress Note ---
- Date 11/14/17 Subjective: F/U: Anemia, GI blood loss, hyponatremia Tolerated EGD/Colonoscopy well. Feels hungry-ready for real food. Not feeling nausea or ab pain. Breathing well-not SOA, or having cough/congestion. Urinating well. Not dizzy or unsteady when up. Objective Vital signs: Temperature 97.8 F 11/14/17 11:53 Pulse Rate 95 11/14/17 12:00 Respiratory Rate 16 11/14/17 11:50 Blood Pressure 168/80 H 11/14/17 11:50 Pulse Oximetry 96 11/14/17 08:00 Height/Weight/BMI: Height 1.68 m Weight 88.8 kg Body Mass Index 31.1 - Constitutional Present: well nourished, well developed, obese, cooperative - Routine HEENT Exam Head: Present: normocephalic, atraumatic Eye: Present: EOMI, PERRL ENT: Present: mucous membranes moist - Routine Respiratory Exam Present: CTA bilaterally. Absent: rales, respiratory distress, rhonchi, wheezes , crackles - Routine Cardiovascular Exam Present: RRR, no murmur - Routine Abdominal Exam Present: soft, normoactive bowel sounds, non distended, non tender. Absent: guarding - Routine Extremities Exam Present: pulses intact. Absent: cyanosis, clubbing - Routine Musculoskeletal Exam Musculoskeletal: Present: no clubbing or cyanosis - Routine Skin Exam Present: dry, warm - Routine Neurological Exam Present: alert, oriented X3, CN II-XII intact, moving all extremities, vision grossly intact, hearing grossly intact, normal speech. Absent: motor deficit, altered mental status - Routine Psychiatric Exam Present: normal affect, normal thought process, good insight Results - Labs CBC & Chem 7: 11/14/17 03:08 11/14/17 03:08 Assessment and Plan (1) Anemia Current visit: Yes Status: Acute (2) Acute GI bleeding Current visit: Yes Status: Acute Assessment and Plan: Assessment Anemia Suspect GI blood loss. (History of peptic ulcer disease with bleeding ulcers ) Syncope, with resulting forehead abrasion Hyponatremia (POA) Iron deficiency Low normal B12 level Type 2 diabetes, diet controlled Chronic hepatitis C Hypertension Chronic low back pain BPH Obesity with BMI 31.1 Plan Underwent EGD and Colonoscopy. EGD showing duodenal ulcer. Colonoscopy showing multiple polyps. Hemoglobin 7.7 this am - improved from yesterday. Carafate started - will need for 2 months. Can change Protonix to oral. Will advance diet to Regular. Blood pressure improved - restart lisinopril tomorrow. Decrease IVF to 50 cc/hr. Transfer to medical floor for care. Recheck BMP in am due to hyponatremia. Recheck CBC in am due to anemia. Case discussed with CCU nursing and Dr Allred. Time spent with patient care 25 minutes. DVT Prophylaxis: SCD's GI Prophylaxis: Protonix Resuscitation Status: Do Not Resuscitate - Time spent with patient Time with patient PN: 25 minutes - Physician Narrative Physician: Meet Munoz MD Narrative: Date: 11/14/17 Time: 1313 Hospital Course Summary Disclaimer: The visit summary below is not to be considered part of the above Progress Note. Hospital Course: 11/12/17 Admit, inpatient status in CCU, under the hospitalist service. Primary care physician: Dr. Jay Goodman Anemia, suspect GI blood loss. Type and cross for blood transfusion. Transfuse 1 unit pRBC as HGB less than 7.0. Consult Dr. Allred. Iron studies ordered prior to transfusion. Will also check INR. Diet: Clear liquids. Protonix IV BID. Resume iron. Syncope Telemetry. Trend troponins. Hyponatremia. Normal saline @ 75 mL/hr. Trend sodium levels. Type 2 diabetes. Diet controlled. Accu-Checks. Hypertension. Hold lisinopril and monitor blood pressure. In addition, with contrast load, will hold lisinopril to help protect kidney function. CODE STATUS: DO NOT RESUSCITATE. VTE Prophylaxis: SCDs. 11/13/17 Hemoglobin increased to 7.2 post transfusion of 1 unit pRBC, but decreased to 6.8 on recheck. Will transfuse 1 unit pRBC and monitor. Iron level low - will give IV iron as level low despite oral iron use in the outpatient setting. B12 low normal at 253 - will start IM Vit B12 shots of 1000mcg daily. Dr Allred evaluated patient and anticipated EGD/Colonoscopy tomorrow - will start bowel prep. Serum sodium still low at 125. Continue low flow IVF and monitor. Continue with IV Protonix for GI protection. 11/14/17 Op Day Underwent EGD and Colonoscopy. EGD showing duodenal ulcer. Colonoscopy showing multiple polyps. Hemoglobin 7.7 this am - improved from yesterday. Carafate started - will need for 2 months. Can change Protonix to oral. Will advance diet to Regular. Blood pressure improved - restart lisinopril tomorrow. Decrease IVF to 50 cc/hr. Transfer to medical floor for care.
[2017-11-14] MEDS ORDERED: PNEUMOCOCCAL VAC ADMIN CHARGE INJ ONE (14:00)
[2017-11-14] MEDS ORDERED: PNEUMOCOCCAL 13 VACCINE 0.5ml INJECTION IM ONE (14:55)
[2017-11-14] MEDS: SUCRALFATE 1 GM TABLET PO SCH ×2 (17:36→21:30)
[2017-11-14] MEDS: PANTOPRAZOLE 40 MG TABLET PO SCH (19:02)
[2017-11-14] MEDS ORDERED: NEOMYCIN/POLYMYXIN/BACITRACIN OINT PACKET TP PRN (19:52)
[2017-11-14] MEDS: TAMSULOSIN 0.4 MG CAPSULE PO SCH (21:30)
[2017-11-15] MEDS: MORPHINE SULFATE 4mg INJECTION IVP PRN ×3 (00:23→06:29)
[2017-11-15] MEDS: HYDROCODONE/APAP 10 MG/325 MG TABLET PO PRN ×3 (01:49→11:22)
[2017-11-15] MEDS: SUCRALFATE 1 GM TABLET PO SCH ×2 (06:23→11:22)
[2017-11-15] MEDS: PANTOPRAZOLE 40 MG TABLET PO SCH (06:23)
[2017-11-15] MEDS: CYANOCOBALAMIN (B-12) 1,000mcg/ml INJECTION IM SCH (08:48)
[2017-11-15] MEDS: CITALOPRAM 40 MG TABLET PO SCH (08:48)
[2017-11-15] MEDS: FERROUS SULFATE 324 MG TABLET PO SCH (08:48)
[2017-11-15] MEDS ORDERED: LISINOPRIL 10 MG TABLET PO SCH (09:00)
--- NOTE | 2017-11-15 10:28 | Progress Note ---
- Date 11/15/17 Subjective: Maikel is seen today in follow up. He wants to go home today. Reports eating well with no pain. No N/V. No bloody stools. Objective Vital signs: Temperature 95.6 F L 11/15/17 07:18 Pulse Rate 97 11/15/17 09:06 Respiratory Rate 14 11/15/17 07:18 Blood Pressure 124/75 11/15/17 07:18 Pulse Oximetry 97 11/15/17 07:18 Height/Weight/BMI: Height 1.68 m Weight 89.5 kg Body Mass Index 31.1 - Constitutional Present: no acute distress, mild distress, well nourished, well developed, cooperative - Routine HEENT Exam Head: Present: normocephalic, atraumatic Eye: Present: EOMI, PERRL - Routine Respiratory Exam Present: CTA bilaterally. Absent: rales, rhonchi, crackles - Routine Cardiovascular Exam Present: RRR, S1, S2 - Routine Abdominal Exam Present: soft, normoactive bowel sounds, non distended, non tender. Absent: tenderness - Routine Extremities Exam Present: no edema, non tender - Routine Musculoskeletal Exam Musculoskeletal: Present: normal strength, moving extremities well - Routine Skin Exam Present: intact, dry, warm - Routine Neurological Exam Present: alert, oriented X3, moving all extremities - Routine Psychiatric Exam Present: normal affect, normal thought process Results - Labs CBC & Chem 7: 11/15/17 12:00 11/15/17 04:26 Assessment and Plan (1) Anemia Current visit: Yes Status: Acute (2) Acute GI bleeding Current visit: Yes Status: Acute Assessment and Plan: Assessment Anemia Suspect GI blood loss Small duodenal ulcer of the duodenal bulb Moderate antral gastritis Colonic polys Syncope, with resulting forehead abrasion Hyponatremia (POA) Iron deficiency Low normal B12 level Type 2 diabetes, diet controlled Chronic hepatitis C Hypertension Chronic low back pain BPH Obesity with BMI 31.1 Plan Underwent EGD and Colonoscopy. EGD showing duodenal ulcer. Colonoscopy showing multiple polyps. - await pathology Hemoglobin 8.0- trending up. Carafate, will need for 2 months. Continue PPI, lifelong. Will advance diet to Regular. BP elevated- restart home PAULETTE. Will DC IVF, as he is tolerating PO. Ongoing hyponatremia, but slow improvement. Will order repeat labs for after lunch. Potentially home today or tomorrow. DVT Prophylaxis: SCD's GI Prophylaxis: Protonix Resuscitation Status: Do Not Resuscitate - Physician Narrative Physician: Meet Munoz MD Narrative: Date: 11/15/17 Time: 1420 Have independently interviewed and examined pt. Chart reviewed. Case discussed with my [employer]. Care plan developed with my supervision; agree with above. Doing well this afternoon. Ambulating well. Back pain better when can be up and moving. Eating well. Breathing well. Not feeling dizzy or unsteady when up. Feels ready to go home. Lungs: clear CV: regular AB: soft nt MSE: awake alert appropriate Plan: Will discharge to home as medically stable. Will need omeprazole 20mg BID for 1 month, after which could be decrease to once a day. Anticipate lifelong need for PPI. Carafate 1 gram ac meals and at hs for 2 months. Ferrous sulfate 325mg with vitamin C 500mg daily with breakfast to help anemia. Vitamin B12 1000mcg daily as B12 level low normal. May use Percocet 10/325 as needed for pain - advises against Percocet use with driving. F/U with PCP in 1 week - recommend checking CBC secondary to anemia and BMP secondary to hyponatremia. See orders for details. Hospital Course Summary Disclaimer: The visit summary below is not to be considered part of the above Progress Note. Hospital Course: 11/12/17 Admit, inpatient status in CCU, under the hospitalist service. Primary care physician: Dr. Jay Goodman Anemia, suspect GI blood loss. Type and cross for blood transfusion. Transfuse 1 unit pRBC as HGB less than 7.0. Consult Dr. Allred. Iron studies ordered prior to transfusion. Will also check INR. Diet: Clear liquids. Protonix IV BID. Resume iron. Syncope Telemetry. Trend troponins. Hyponatremia. Normal saline @ 75 mL/hr. Trend sodium levels. Type 2 diabetes. Diet controlled. Accu-Checks. Hypertension. Hold lisinopril and monitor blood pressure. In addition, with contrast load, will hold lisinopril to help protect kidney function. CODE STATUS: DO NOT RESUSCITATE. VTE Prophylaxis: SCDs. 11/13/17 Hemoglobin increased to 7.2 post transfusion of 1 unit pRBC, but decreased to 6.8 on recheck. Will transfuse 1 unit pRBC and monitor. Iron level low - will give IV iron as level low despite oral iron use in the outpatient setting. B12 low normal at 253 - will start IM Vit B12 shots of 1000mcg daily. Dr Allred evaluated patient and anticipated EGD/Colonoscopy tomorrow - will start bowel prep. Serum sodium still low at 125. Continue low flow IVF and monitor. Continue with IV Protonix for GI protection. 11/14/17 Op Day Underwent EGD and Colonoscopy. EGD showing duodenal ulcer. Colonoscopy showing multiple polyps. Hemoglobin 7.7 this am - improved from yesterday. Carafate started - will need for 2 months. Can change Protonix to oral. Will advance diet to Regular. Blood pressure improved - restart lisinopril tomorrow. Decrease IVF to 50 cc/hr. Transfer to medical floor for care. 11/15/17 Doing well clinically. Hemoglobin 8.0 this am, stable at 7.9 on recheck. Sodium improved to 131. Will discharge to home as medically stable. Will need omeprazole 20mg BID for 1 month, after which could be decrease to once a day. Anticipate lifelong need for PPI. Carafate 1 gram ac meals and at hs for 2 months. Ferrous sulfate 325mg with vitamin C 500mg daily with breakfast to help anemia. Vitamin B12 1000mcg daily as B12 level low normal. May use Percocet 10/325 as needed for pain - advises against Percocet use with driving. F/U with PCP in 1 week - recommend checking CBC secondary to anemia and BMP secondary to hyponatremia. See orders for details.
[2017-11-15] MEDS: NS 1,000 ML IV SCH (10:46)
[2017-11-15 11:25] VITALS: RESP 16
--- NOTE | 2017-11-15 14:34 | Discharge Summary ---
Discharge Information Date of admission: 11/12/17 17:01 Anticipated date of discharge: 11/15/17 Attending Physician: Meet Munoz MD Primary care physician: Jay Goodman Consults: Physician Consult: Jules Allred Reason For Exam: Anemia - scopes - Discharge Diagnosis (1) Anemia Status: Acute (2) Acute GI bleeding Status: Acute Discharge diagnosis Anemia Suspect GI blood loss Associated conditions and complications Small duodenal ulcer of the duodenal bulb Moderate antral gastritis Colonic polys Syncope, with resulting forehead abrasion Elevated TSH Hyponatremia (POA) Iron deficiency Low normal B12 level Type 2 diabetes, diet controlled Chronic hepatitis C - CT showing evidence of cirrhosis of liver Hypertension Chronic low back pain BPH Obesity with BMI 31.1 - Procedures Procedures: DATE OF OPERATION: 11/14/2017 PROCEDURE 1. Esophagogastroduodenoscopy with duodenal biopsies for histology and antral biopsies for AFSHAN and histology. 2. Colonoscopy with hot snare polypectomy x 2 and hot biopsy forceps polypectomy x 8. SURGEON: Jules Allred MD POSTOPERATIVE DIAGNOSES 1. Small duodenal ulcer of the duodenal bulb. 2. Moderate antral gastritis. 3. 0.5-cm sessile polyp of the descending colon. 4. Less than 0.5-cm sessile polyp of the descending colon. 5. Less than 0.5-cm sigmoid colon polyp at 45 cm. 6. 0.5-cm sigmoid colon polyp at 30 cm. 7. Less than 0.5-cm sigmoid colon polyp at 28 cm. 8. Multiple small rectal polyps (five biopsied). 9. Moderate internal hemorrhoids. TRANSFUSIONS 12: 1 unit pRBC 11/13: 1 unit pRBC IV Iron Infusion 11/13 - Laboratory Labs: Admit Lab 11/12/17 14:56 WBC 5.4 Hgb 5.9 L* Hct 19.3 L MCV 95.1 Plt Count 209 Neut % (Auto) 66.3 H Lymph % (Auto) 23.1 Trinity % (Auto) 9.4 H Eos % (Auto) 0.4 Baso % (Auto) 0.4 Admit Lab 11/12/17 14:56 Sodium 125 L Potassium 4.7 Chloride 92 L Carbon Dioxide 20 L Anion Gap 13 BUN 11.0 Creatinine 0.7 L GFR Calculation 113 BUN/Creatinine Ratio 16 Glucose 90 Calculated Osmolality 241 L Total Bilirubin 0.30 AST 28 ALT 14 Alkaline Phosphatase 53 Troponin I < 0.012 NT-Pro-B Natriuret Pep 51.8 Total Protein 6.8 Albumin 4.3 Globulin 2.5 Albumin/Globulin Ratio 1.7 Lipase 75 Anemia Tests 11/12/17 14:56 Iron 19 L TIBC 422 % Saturation 5 L Ferritin 11.4 L Vitamin B12 258 Folate 17.3 TSH 11/13/17 03:08 TSH 7.17 H 11/15/17 12:00 11/15/17 04:26 - Microbiology H pylori testing pending - Radiology Radiology: Date of Exam: 11/12/17 Type of Exam: XR chest 2V Findings: There is a questionable nodular opacity in the right mid to upper lung field that measures about 1.5 to 2 cm. The lungs are otherwise relatively clear without lobar consolidation or pleural effusion. Heart size is normal. No significant tortuosity of the descending thoracic aorta. Trachea is midline. Impression: Possible poorly defined nodular opacity in the right midlung. Consider chest CT with IV contrast or short-term follow-up exam for further evaluation. Date of Exam: 11/12/17 Type of Exam: CT head/brain wo con Findings: There is mild prominence of the ventricles and sulci compatible with cortical atrophy. There is no mass, mass effect, or midline shift. No evidence for intracranial hemorrhage. No intra or extra-axial fluid collections. No evidence for depressed skull fracture. The included portions of the sinuses are clear. IMPRESSION: Mild cortical atrophy. No evidence for acute cortical infarct, intracranial hemorrhage, or mass. Date of Exam: 11/12/17 Type of Exam: CT angio aorta Findings: CTA chest: The great vessels arise from the aorta and a normal variant manner with the left vertebral artery arising directly from the aortic arch. There is no evidence for aortic aneurysm. There is scattered calcific atherosclerotic disease. The descending aorta is normal in caliber. No evidence for aortic dissection. The lungs are relatively clear. There are some linear atelectasis and/or scarring in the posterior right lung. There is no mediastinal or hilar adenopathy. Heart size is normal. No pericardial effusion. No pleural effusion. CTA abdomen: The abdominal aorta is nonaneurysmal. The great vessels are widely patent without flow-limiting stenosis. There are single bilateral renal arteries. The TIM is patent. There is no ulcerative plaque. There are a few scattered calcific atherosclerotic plaques. The liver has a slightly nodular contour suggesting cirrhosis. The spleen is not definitely enlarged. Adrenal glands are normal. Kidneys enhance symmetrically without focal abnormality. No hydronephrosis, mass, or stone. The gallbladder is thin-walled and nondistended without definite stones. The pancreas is homogeneous in density and uniform in contour. There is no definite bowel distention or bowel wall thickening. No retroperitoneal or mesenteric adenopathy. CTA pelvis: The aortic bifurcation is unremarkable. There is no definite ectasia or aneurysmal dilation of the iliac vessels which are widely patent through the common femoral arteries. The urinary bladder is mildly distended. There is no free fluid. A normal appendix is identified. There is moderate scoliosis of the thoracolumbar spine that is levoconvex in the lumbar spine. Impression: No evidence for aortic aneurysm or aortic dissection. No flow- limiting stenosis of the great vessels. Evidence for cirrhosis of the liver. Mild distention of the urinary bladder. History of Present Illness HPI: Adam Bejarano is a 67 y/o male who has felt lightheaded for about a week. Also during this time he's had some increasing allergy symptoms and has been taking Sudafed. However, he developed loose stools a couple of days ago. He states they were brown and did not appear black or red. He denied feeling SOA, but would become winded after walking about 20 feet. He became very dizzy on and passed out. His only symptom prior to that was dizziness - he denied any chest pain, headache, visual changes, or abdominal pain. He has chronic back pain which is not well controlled today (he only has been on Tylenol for the last 6 months - used to take narcotics). He presented to [facility] for evaluation. He was hemodynamically stable on arrival. Head CT was negative for acute findings. CT angio of his aorta was negative for dissection or aneurysm. Labs showed hgb of 5.9 and Na of 125 (pt reports a hx of low sodium). UA was negative for UTI. Hemoccult was positive. He received Morphine for his back pain which was ineffective. Dr. Munoz was notified and admitted MR. Bejarano to the CCU as an inpatient for further eval treatment of syncope, acute severe anemia, and hyponatremia. LOS is expected to exceed 2 overnights. For complete details of the H&P refer to that document. Objective Vital signs: Temperature 97.5 F 11/15/17 11:24 Pulse Rate 98 11/15/17 12:25 Respiratory Rate 16 11/15/17 11:24 Blood Pressure 123/66 11/15/17 11:24 Pulse Oximetry 96 11/15/17 11:24 Height/Weight/BMI: Height 1.68 m Weight 89.5 kg Body Mass Index 31.1 Hospital Course This is a general summary of the patient's hospital course. For more details refer to the complete medical record. Hospital course: 11/12/17 Admit, inpatient status in CCU, under the hospitalist service. Primary care physician: Dr. Jay Goodman Anemia, suspect GI blood loss. Type and cross for blood transfusion. Transfuse 1 unit pRBC as HGB less than 7.0. Consult Dr. Allred. Iron studies ordered prior to transfusion. Will also check INR. Diet: Clear liquids. Protonix IV BID. Resume iron. Syncope Telemetry. Trend troponins. Hyponatremia. Normal saline @ 75 mL/hr. Trend sodium levels. Type 2 diabetes. Diet controlled. Accu-Checks. Hypertension. Hold lisinopril and monitor blood pressure. In addition, with contrast load, will hold lisinopril to help protect kidney function. CODE STATUS: DO NOT RESUSCITATE. VTE Prophylaxis: SCDs. 11/13/17 Hemoglobin increased to 7.2 post transfusion of 1 unit pRBC, but decreased to 6.8 on recheck. Will transfuse 1 unit pRBC and monitor. Iron level low - will give IV iron as level low despite oral iron use in the outpatient setting. B12 low normal at 253 - will start IM Vit B12 shots of 1000mcg daily. Dr Allred evaluated patient and anticipated EGD/Colonoscopy tomorrow - will start bowel prep. Serum sodium still low at 125. Continue low flow IVF and monitor. Continue with IV Protonix for GI protection. 11/14/17 Op Day Underwent EGD and Colonoscopy. EGD showing duodenal ulcer. Colonoscopy showing multiple polyps. Hemoglobin 7.7 this am - improved from yesterday. Carafate started - will need for 2 months. Can change Protonix to oral. Will advance diet to Regular. Blood pressure improved - restart lisinopril tomorrow. Decrease IVF to 50 cc/hr. Transfer to medical floor for care. 11/15/17 Doing well clinically. Hemoglobin 8.0 this am, stable at 7.9 on recheck. Sodium improved to 131. Will discharge to home as medically stable. Will need omeprazole 20mg BID for 1 month, after which could be decrease to once a day. Anticipate lifelong need for PPI. Carafate 1 gram ac meals and at hs for 2 months. Ferrous sulfate 325mg with vitamin C 500mg daily with breakfast to help anemia. Vitamin B12 1000mcg daily as B12 level low normal. May use Percocet 10/325 as needed for pain - advises against Percocet use with driving. F/U with PCP in 1 week - recommend checking CBC secondary to anemia and BMP secondary to hyponatremia. Could recheck TSH in 1 month as TSH elevated - possible euthyroid sick. See orders for details. Time spent with patient: discharge greater than 30 minutes Resuscitation Status: Do Not Resuscitate Discharge Plan - Discharge Disposition Discharge Date: 11/15/17 Disposition: 01 Discharged Home, Self-Care *Condition: Stable Reason For Visit (Visit label in EMR): Anemia, GI bleed, Hyponatremia - Discharge Medications *Discharge Medications: New RX: Omeprazole [Prilosec] 1 cap PO ACBID #60 cap Oxycodone/Apap 10/325 [Percocet 10/325] 1 tab PO Q6HR PRN #30 tab PRN Reason: Pain RX: Sucralfate [Carafate] 1 gm PO ACHS #120 tab Ascorbic Acid [Vitamin C] 500 mg PO WB #1 bottle RX: Cyanocobalamin (Vitamin B-12) [Vitamin B-12] 1,000 mcg PO DAILY #1 bottle Continue RX: Cyclobenzaprine [Flexeril] 10 mg PO TID PRN PRN Reason: Prn Orders RX: Acetaminophen [Acetaminophen Extra Strength] 1,000 mg PO Q6H PRN PRN Reason: Pain RX: Lisinopril [Prinivil] 10 mg PO DAILY RX: Tamsulosin [Flomax] 0.4 mg PO HS RX: Glucosa Bob 2Kcl/Chondroitin Bob [Glucosamine Chondroitin Caplet] 1 tab PO DAILY RX: Citalopram [Celexa] 40 mg PO DAILY Changed RX: Ferrous Sulfate [Iron] 325 mg PO WB #0 - Discharge Packet/Instructions *Diet: Regular *Activity: As tolerated *Pain Management/Treatment: May use Percocet 10/325 1 tablet every 6 hours for severe pain. Do not drive while using Percocet. *Wound Care: n/a Additional Instructions: Use omeprazole (Prilosec) 20mg twice a day for 1 month to help heal ulcer, then decrease to once a day. Use Carafate 1gram before meal and at night to help heal ulcer - you need to use this for 2 months, then can stop. Take vitamin C 500mg with Iron 325mg once a day with breakfast to help improve blood counts. Use Vitamin B12 1000mcg once a day to help blood counts. *Expected Signs/Symptoms: Improvement of hemoglobin. Improvement of strenght. *Notify Physician if: Temp greater than 100.4. Increased weakness/shortness of air. *During Business Hours Contact: Contact your PCP *After Business Hours Contact: Call [facility] and have you PCP contacted. *Pending Lab/Results: No Pending Lab - Referrals/Follow Up *Referrals/Follow Up: Jay Goodman [Primary Care Provider] - 1 Week (Hopsital follow up for anemia secondary to duodenal ulcer. Recommend rechecking CBC due to anemia. Recommend rechecking BMP secondary to hyponatremia. ) - Patient Handouts - Dismissal Complete Discharge Instructions are:: Complete Physician Narrative - Narrative Physician: Meet Munoz MD Attestation Narrative: Date: 11/15/17 Time: 1431 I have independently interviewed and examined patient prior to discharge. See my progress note from today for details. Medically stable for discharge to home.
[2017-11-15 15:57] VITALS: BP 147/80; PULSE 95; TEMP 97.2; O2SAT 100
--- NOTE | 2017-11-16 11:41 | Progress Note ---
DATE OF VISIT 11/15/2017 REASON FOR VISIT Discuss endoscopy findings. SUBJECTIVE Adam is doing well. He is planning to go home and has discharge instructions per the hospitalist team. He denies any abdominal pain today. OBJECTIVE GENERAL: The patient is awake, alert, in no acute distress. ABDOMEN: Soft, nontender, nondistended. IMPRESSION 1. Anemia - stable. 2. Small duodenal ulcer. 3. Multiple colon polyps - pathology pending. RECOMMENDATIONS 1. Agree with b.i.d. PPI for a month and Carafate therapy for 2 months. He will need lifelong PPI therapy given his history of recurrent ulcers. 2. Await pathology results. Once pathology results of his colon polyps are available, my office will be contacting him to let him know when he is due for another colonoscopy. 3. Endoscopy findings and recommendations were reviewed with the patient. FLORECITA
== END 2017-11-15 16:16 | disposition home or self-care (01) | DRG 378 ==
LOC: ED 13:16 → CCU 17:01 → SRG 11-14 18:46
PROVIDERS: ADMIT Hospitalist; ATTEND Hospitalist
PROC: END.EGD (2017-11-14 10:00)